=== PATIENT | female | born 1975 | race Caucasian/White ===

== ENCOUNTER 2019-01-01 16:44 | Emergency (ER) | payer BC, SELFPAY ==
[2019-01-01 16:49] VITALS: BP 121/90; PULSE 111; RESP 16; TEMP 37; O2SAT 100; BMI 25.0
[2019-01-01 17:23] LABS: Add Manual Diff / Slide Review NO; Basophils Absolute Auto 100 /uL (0-100); Eosinophils Absolute Auto 100 /uL (0-450); Eosinophils Percent Auto 1.6 % (2-4); Hematocrit 43.4 % (36-46); Hemoglobin 14.9 g/dL (12.0-16.0); Lymphocytes Absolute Auto 2100 /uL (1100-4500); Lymphocytes Percent Auto 27.3 % (25-40); Mean Corpuscular HGB Conc 34.2 % (30-36); Mean Corpuscular Hemoglobin 32.2 PG (26-34); Monocytes Absolute Auto 500 /uL (0-900); Monocytes Percent Auto 6.6 % (3-14); Neutrophils Absolute Auto 4900 /uL (1500-7000); Neutrophils Percent Auto 63.5 % (50-75); Platelet Count 215 X10^3/uL (150-400); Red Blood Cell Count 4.62 X10^6/uL (4.0-5.2); Red Cell Distribution Width 13.3 % (11.6-14.8); White Blood Cell Count 7.7 X10^3/uL (4.5-11.0)
[2019-01-01 17:30] LABS: Bacteria Urine Few (2-10); Culture Indicated Urine Cult Not Indicated; RBC Urine 1-5/HPF (0-5/HPF); Squamous Epithelial Cell Urine 1-5 /HPF (0-5/HPF); WBC Urine 1-5/HPF (0-5/HPF)
[2019-01-01 17:31] LABS: Acetaminophen < 10 ug/mL (10-30); Alanine Aminotransferase 22 IU/L (9-52); Albumin 4.8 g/dL (3.5-5.0); Albumin Globulin Ratio 1.7 (1.0-2.8); Alkaline Phosphatase 45 U/L (38-126); Aspartate Aminotransferase 33 IU/L (14-36); BUN Creatinine Ratio 18.6 (6-22); Bilirubin Total 0.3 mg/dL (0.2-1.3); Blood Urea Nitrogen 13 mg/dL (7-17); Calcium 9.2 mg/dL (8.4-10.2); Carbon Dioxide 27 mmol/L (22-32); Chloride 107 mmol/L (98-107); Estimated Glomerular Filt Rate > 60.0 mL/min (>60); Ethanol (ETOH) 209 mg/dL; Globulin 2.9 g/dL (1.7-4.1); Glucose 92 mg/dL (70-100); HEMOLYSIS < 15 (0-50); Potassium 3.7 mmol/L (3.4-5.1); Salicylate < 1.0 mg/dL (<20); Sodium 146 mmol/L (137-145); Total Protein 7.7 g/dL (6.3-8.2)
--- NOTE | 2019-01-01 17:52 | PC.NURSE ---
Patient called per patient request. Jarrod [phone] Reports that patient has been very depressed and angry recently. He reports patient has made comments about hating her mother and her life He states that a couple days ago she made a statement about wanting to jump off the bridge but that she couldn't do it. Patient states that normally she is the sweetest most loving person the way she has been acting recently is not her.
[2019-01-01 17:57] LABS: Urine Amphetamines Negative (Negative); Urine Barbiturates Negative (Negative); Urine Benzodiazepines Negative (Negative); Urine Cocaine Negative (Negative); Urine MDMA Negative (Negative); Urine Methadone Negative (Negative); Urine Methamphetamines Negative (Negative); Urine Morphine/Opi cutoff 2000 Negative (Negative); Urine Oxycodone Negative (Negative); Urine Phencyclidine Negative (Negative); Urine Tetrahydrocannabinol Positive (Negative); Urine Tricyclic Antidepressant Negative (Negative)
--- NOTE | 2019-01-01 18:10 | ED.PSYCH ---
HPI - Psych General Chief Complaint: Psychiatric Symptoms Stated Complaint: Suicidal Time Seen by Provider: 01/01/19 18:10 Source: patient and family Mode of arrival: other (Police) Limitations: other (Intoxication) History of Present Illness HPI Narrative: Patient is a 43-year-old female who is brought in by police. The police were called by the patient's after he received a text earlier today from his stating that she was ?sorry? he states that he then received a photo of the [place] from [place]. It was reported by the patient and the that she has been feeling depressed recently. Patient denies any specific reason. She has had depression in the past. Does not see a mental health provider. Denies any other medical problems. Does not take any medications for mental health issues. She has had a prior suicide attempt several years ago. Denies any prior admissions. The patient's stated that a couple days ago she made a comment about ?wanting to jump off a bridge ?. He states that she has made comments like this in the past but has never acted on anything. Patient does admit to drinking alcohol. Related Data Home Medications Medication Instructions Recorded Confirmed No Known Home Medications 01/01/19 01/01/19 Allergies Allergy/AdvReac Type Severity Reaction Status Date / Time No Known Drug Allergies Allergy Verified 01/01/19 16:58 Review of Systems Review of Systems Patient denies all symptoms Constitutional Denies headache(s) ENT Ears, Nose, Mouth, and Throat: Denies headache(s) Cardiovascular Denies chest pain and Denies dyspnea Respiratory Denies dyspnea Gastrointestinal Gastrointestinal: Denies abdominal pain Musculoskeletal Denies myalgias and Denies arthralgias Integumentary/Breasts Denies rash Neurologic Denies headache(s) Psychiatric Reports depression and Reports suicidal ideation Hematologic/Lymphatic Denies easy bleeding and Denies easy bruising [facility] Medical History Depression (Acute) Social History Smoking Status: Never smoker Social History Smoking Status: Never smoker Exam Initial Vital Signs Initial Vital Signs: Vital Signs Temperature 98.6 F 01/01/19 16:49 Pulse Rate 111 H 01/01/19 16:49 Respiratory Rate 16 05/21/19 16:49 Blood Pressure 121/90 01/01/19 16:49 Pulse Oximetry 100 01/01/19 16:49 Const General: well developed and other (Angry) Orientation: alert, awake and oriented x3 HENMT Head: normal to inspection and normocephalic Resp Effort & Inspection: normal respiratory effort Cardio Rate: tachycardic Skin Lesions: no lesions Rashes: no rashes Neuro General: alert and awake Speech: speech normal Extrem Other: No gross abnormalities moves all 4 extremities Psych Appearance: grossly normal and well kempt Speech and Movement: agitated and restless Mood: angry Affect: animated, anxious affect, indifferent (States that standing on the bridge ready to jump does not bother her) and irritable affect Attitude: belligerent Thought Process: illogical Thought Content: suicidality Judgment: poor Course Orders Ordered: ED Orders 01/01/19 23:55 Ethanol (ETOH) Stat 01/02/19 01:45 Ethanol (ETOH) Stat Discontinued Medications Acetaminophen (Tylenol) 650 mg PO NOW ONE Stop: 01/01/19 21:15 Last Admin: 01/01/19 21:20 Dose: 650 mg Lorazepam (Ativan) 0.5 mg IV NOW ONE Stop: 01/02/19 02:35 Last Admin: 01/02/19 02:40 Dose: Not Given Lorazepam (Ativan) 0.5 mg PO NOW ONE Stop: 01/02/19 02:37 Last Admin: 01/02/19 02:38 Dose: 0.5 mg Lorazepam (Ativan) 0.5 mg IV NOW ONE Stop: 01/02/19 03:25 Last Admin: 01/02/19 03:28 Dose: 0.5 mg Lorazepam (Ativan) 0.5 mg IV NOW ONE Stop: 01/02/19 04:26 Last Admin: 01/02/19 04:40 Dose: 0.5 mg Lorazepam (Ativan) 0.5 mg IV NOW ONE Stop: 01/02/19 06:16 Last Admin: 01/02/19 06:20 Dose: 0.5 mg Ondansetron HCl (Zofran Odt) 4 mg SL NOW ONE Stop: 01/02/19 00:19 Last Admin: 01/02/19 00:19 Dose: 4 mg Ondansetron HCl (Zofran Odt) 4 mg SL NOW ONE Stop: 01/02/19 01:47 Last Admin: 01/02/19 01:48 Dose: 4 mg Vital Signs - 8 hr 01/02/19 00:08 01/02/19 02:38 01/02/19 03:20 Temperature 98.5 F 97.2 F L Pulse Rate 102 H 115 H 110 H Respiratory Rate 16 18 20 Blood Pressure [Left Arm] 114/79 126/83 Pulse Oximetry 98 98 96 01/02/19 06:20 Temperature 97.7 F Pulse Rate 118 H Respiratory Rate 16 Blood Pressure [Left Arm] 120/76 Pulse Oximetry 99 MDM - Psych Lab Data Attestation: I reviewed the patient's lab results. Result diagrams: 01/01/19 17:13 01/01/19 17:13 Lab Results 01/01/19 01/01/19 01/01/19 Range/Units 17:13 17:13 17:13 WBC 7.7 (4.5-11.0) X10^3/uL RBC 4.62 (4.0-5.2) X10^6/uL Hgb 14.9 (12.0-16.0) g/dL Hct 43.4 (36-46) % MCV 94.0 (80-100) fL MCH 32.2 (26-34) PG MCHC 34.2 (30-36) % RDW 13.3 (11.6-14.8) % Plt Count 215 (150-400) X10^3/uL Neut % (Auto) 63.5 (50-75) % Lymph % (Auto) 27.3 (25-40) % [place] % (Auto) 6.6 (3-14) % Eos % (Auto) 1.6 L (2-4) % Baso % (Auto) 1.0 (0-2) % Neut # (Auto) 4900 (1537-4370) /uL Lymph # (Auto) 2100 (9692-1474) /uL [place] # (Auto) 500 (0-900) /uL Eos # (Auto) 100 (0-450) /uL Baso # (Auto) 100 (0-100) /uL Sodium 146 H (137-145) mmol/L Potassium 3.7 (3.4-5.1) mmol/L Chloride 107 (98-107) mmol/L Carbon Dioxide 27 (22-32) mmol/L BUN 13 (7-17) mg/dL Creatinine 0.70 (0.52-1.04) mg/dL Estimated GFR > 60.0 (>60) mL/min BUN/Creatinine Ratio 18.6 (6-22) Glucose 92 (70-100) mg/dL Calcium 9.2 (8.4-10.2) mg/dL Total Bilirubin 0.3 (0.2-1.3) mg/dL AST 33 (14-36) IU/L ALT 22 (9-52) IU/L Alkaline Phosphatase 45 (38-126) U/L Total Protein 7.7 (6.3-8.2) g/dL Albumin 4.8 (3.5-5.0) g/dL Globulin 2.9 (1.7-4.1) g/dL Albumin/Globulin Ratio 1.7 (1.0-2.8) TSH 1.48 (0.47-4.68) uIU/mL Urine RBC (0-5/HPF) Urine WBC (0-5/HPF) Ur Squamous Epith Cells (0-5/HPF) Urine Bacteria (None) Ur Culture Indicated? Salicylates < 1.0 (<20) mg/dL Urine Opiates Screen (Negative) Ur Oxycodone Screen (Negative) Urine Methadone Screen (Negative) Acetaminophen < 10 L (10-30) ug/mL Ur Barbiturates Screen (Negative) U Tricyclic Antidepress (Negative) Ur Phencyclidine Scrn (Negative) Ur Amphetamines Screen (Negative) U Methamphetamines Scrn (Negative) Ur MDMA Scrn (Ecstasy) (Negative) U Benzodiazepines Scrn (Negative) Urine Cocaine Screen (Negative) U Marijuana (THC) Screen (Negative) Ethyl Alcohol 209 mg/dL 01/01/19 01/01/19 01/01/19 Range/Units 17:15 17:15 21:05 WBC (4.5-11.0) X10^3/uL RBC (4.0-5.2) X10^6/uL Hgb (12.0-16.0) g/dL Hct (36-46) % MCV (80-100) fL MCH (26-34) PG MCHC (30-36) % RDW (11.6-14.8) % Plt Count (150-400) X10^3/uL Neut % (Auto) (50-75) % Lymph % (Auto) (25-40) % [place] % (Auto) (3-14) % Eos % (Auto) (2-4) % Baso % (Auto) (0-2) % Neut # (Auto) (1735-2837) /uL Lymph # (Auto) (0738-9970) /uL [place] # (Auto) (0-900) /uL Eos # (Auto) (0-450) /uL Baso # (Auto) (0-100) /uL Sodium (137-145) mmol/L Potassium (3.4-5.1) mmol/L Chloride (98-107) mmol/L Carbon Dioxide (22-32) mmol/L BUN (7-17) mg/dL Creatinine (0.52-1.04) mg/dL Estimated GFR (>60) mL/min BUN/Creatinine Ratio (6-22) Glucose (70-100) mg/dL Calcium (8.4-10.2) mg/dL Total Bilirubin (0.2-1.3) mg/dL AST (14-36) IU/L ALT (9-52) IU/L Alkaline Phosphatase (38-126) U/L Total Protein (6.3-8.2) g/dL Albumin (3.5-5.0) g/dL Globulin (1.7-4.1) g/dL Albumin/Globulin Ratio (1.0-2.8) TSH (0.47-4.68) uIU/mL Urine RBC 1-5/hpf (0-5/HPF) Urine WBC 1-5/hpf (0-5/HPF) Ur Squamous Epith Cells 1-5 /hpf (0-5/HPF) Urine Bacteria Few (2-10) H (None) Ur Culture Indicated? Cult not indicated Salicylates (<20) mg/dL Urine Opiates Screen Negative (Negative) Ur Oxycodone Screen Negative (Negative) Urine Methadone Screen Negative (Negative) Acetaminophen (10-30) ug/mL Ur Barbiturates Screen Negative (Negative) U Tricyclic Antidepress Negative (Negative) Ur Phencyclidine Scrn Negative (Negative) Ur Amphetamines Screen Negative (Negative) U Methamphetamines Scrn Negative (Negative) Ur MDMA Scrn (Ecstasy) Negative (Negative) U Benzodiazepines Scrn Negative (Negative) Urine Cocaine Screen Negative (Negative) U Marijuana (THC) Screen Positive H (Negative) Ethyl Alcohol 156 mg/dL 01/02/19 01/02/19 Range/Units 00:05 01:45 WBC (4.5-11.0) X10^3/uL RBC (4.0-5.2) X10^6/uL Hgb (12.0-16.0) g/dL Hct (36-46) % MCV (80-100) fL MCH (26-34) PG MCHC (30-36) % RDW (11.6-14.8) % Plt Count (150-400) X10^3/uL Neut % (Auto) (50-75) % Lymph % (Auto) (25-40) % [place] % (Auto) (3-14) % Eos % (Auto) (2-4) % Baso % (Auto) (0-2) % Neut # (Auto) (9148-4473) /uL Lymph # (Auto) (4857-3368) /uL [place] # (Auto) (0-900) /uL Eos # (Auto) (0-450) /uL Baso # (Auto) (0-100) /uL Sodium (137-145) mmol/L Potassium (3.4-5.1) mmol/L Chloride (98-107) mmol/L Carbon Dioxide (22-32) mmol/L BUN (7-17) mg/dL Creatinine (0.52-1.04) mg/dL Estimated GFR (>60) mL/min BUN/Creatinine Ratio (6-22) Glucose (70-100) mg/dL Calcium (8.4-10.2) mg/dL Total Bilirubin (0.2-1.3) mg/dL AST (14-36) IU/L ALT (9-52) IU/L Alkaline Phosphatase (38-126) U/L Total Protein (6.3-8.2) g/dL Albumin (3.5-5.0) g/dL Globulin (1.7-4.1) g/dL Albumin/Globulin Ratio (1.0-2.8) TSH (0.47-4.68) uIU/mL Urine RBC (0-5/HPF) Urine WBC (0-5/HPF) Ur Squamous Epith Cells (0-5/HPF) Urine Bacteria (None) Ur Culture Indicated? Salicylates (<20) mg/dL Urine Opiates Screen (Negative) Ur Oxycodone Screen (Negative) Urine Methadone Screen (Negative) Acetaminophen (10-30) ug/mL Ur Barbiturates Screen (Negative) U Tricyclic Antidepress (Negative) Ur Phencyclidine Scrn (Negative) Ur Amphetamines Screen (Negative) U Methamphetamines Scrn (Negative) Ur MDMA Scrn (Ecstasy) (Negative) U Benzodiazepines Scrn (Negative) Urine Cocaine Screen (Negative) U Marijuana (THC) Screen (Negative) Ethyl Alcohol 100 66 mg/dL Point of Care Testing Glucose POC 79 Urine Dip Bedside Urine Glucose Negative Bedside Urine Bilirubin - Negative Bedside Urine Ketone - Negative Urine Specific [place] 1.020 Bedside Urine Occult Blood + Bedside Urine pH 5.5 Bedside Urine Protein - Negative Bedside Urine Urobilinogen - Negative Bedside Urine Nitrite - Negative Bedside Urine Leukocytes - Negative Esterase MDM Narrative Medical decision making narrative: Upon arrival patient was intoxicated and in my opinion does not have the capacity to make decisions. 1143: Patient has been much more calm. Did tolerate oral intake. Family still at bedside. Awaiting repeat alcohol level. I still feel that the patient is a danger to herself and does not have the capacity to make decisions so will reorder the restraints 0203: Patient alcohol level now below legal limit. She has been calm. Has had 2 episodes of vomiting which have been resolved with Zofran. Patient is now medically cleared. DCR contacted. Patient is medically cleared. Care turned over today provider change of shift for disposition. Discharge Plan Departure Patient Disposition: [facility] Clinical Impression: Suicidal ideation Prescriptions: No Action No Known Home Medications RF: 0
[2019-01-01 18:15] LABS: Thyroid Stimulating Hormone 1.48 uIU/mL (0.47-4.68)
--- NOTE | 2019-01-01 18:37 | PC.NURSE ---
Patient keeps repeating that she feels like no one cares about her and that she is wasting everyone's time and that the doctor doesn't give a crap about her and that the doctor will just come in the room and tell her that she is a piece of shit is trying to support and console patient but the patient is not receptive Patient's daughter is in room and patient said she shouldn't be here, daughter left room in tears and RN spoke with her and consoled her. Daughter has now returned to room Patient's mood has escalated since 's arrival and patient continues to state that she has been here a long time and that the doctor hasn't been in to see her....RN and myself have tried to update her that lab work still pending and that the doctor will be in to see her when results are final. Patient keeps stating that she has been in ER over 3 hours and yet at the time she said that it had only been a little over an hour. Patient keeps telling her daughter that she is sorry that her dad brought her
--- NOTE | 2019-01-01 19:06 | PC.NURSE ---
Patient spouse arrived at bedside. Patient escalating. Patient upset about not seeing a doctor yet. Reminded patient of our in depth discussion in triage about the process. Asked patient to remove clothing and place on paper scrubs per hospital policy. Patient agitated nobody fucking told me that why am I being punished for asking about my care Reminded patient of the process. Patient undressed and placed on paper scrubs. remains at bedside. Ongoing yelling at her about being at the hospital Thanks a lot Leonides it is your fucking fault I am here. This is the last time I ever tell anyone anything
--- NOTE | 2019-01-01 19:40 | PC.NURSE ---
pt is laying down on bed having a conversation with his and daughter in the room.
--- NOTE | 2019-01-01 19:46 | PC.NURSE ---
Pt laying on bed, , nurse and dr padron in room talking.
--- NOTE | 2019-01-01 20:00 | PC.NURSE ---
pt laying on mattress, family has left and door is open to hallway and lights are on in room.
--- NOTE | 2019-01-01 20:15 | PC.NURSE ---
Door is open to hallway and lights are on in room. Pt is resting on bed with blankets over her.
--- NOTE | 2019-01-01 20:30 | PC.NURSE ---
pt relaxing on bed, door is open to hallway.
--- NOTE | 2019-01-01 20:48 | PC.NURSE ---
pt got up and used bathroom and is now back in bed with blankets over her. Bathroom door is now re-locked and door is open to hallway and lights are off so pt can rest.
--- NOTE | 2019-01-01 20:53 | PC.NURSE ---
pt raising her voice i can't miss work, i'll lose my job pt directing this to spouse. i asked spouse for space, he agreed, escorted he and his daughter out to waiting area. at 1999, just updated him that she doesn't want visitors at this time.
--- NOTE | 2019-01-01 21:01 | PC.NURSE ---
Pt is laying on bed, lab in room to re-draw blood.
[2019-01-01 21:07] VITALS: BP 120/85; PULSE 99; RESP 15; O2SAT 100
[2019-01-01] MEDS: ACETAMINOPHEN 325 MG TABLET 650 MG PO (21:20)
[2019-01-01 21:23] LABS: Ethanol (ETOH) 156 mg/dL
--- NOTE | 2019-01-01 21:27 | PC.NURSE ---
Nurse giving pt medication with water, pt sitting up in bed. Door is open to hallway.
--- NOTE | 2019-01-01 21:31 | PC.NURSE ---
Pt is laying down, door is open to hallway and lights are off in room.
--- NOTE | 2019-01-01 21:48 | PC.NURSE ---
pt's is in room visiting
--- NOTE | 2019-01-01 22:15 | PC.NURSE ---
pt is laying on bed relaxin with blankets over her. Door is open to hallway and lights are off in room.
--- NOTE | 2019-01-01 22:33 | PC.NURSE ---
pt is resting on bed
--- NOTE | 2019-01-01 22:41 | PC.NURSE ---
daughter brought patient food to eat. patient sitting on stretcher calm and eating. provider aware and ok with patient to eat. no new orders at this time.
--- NOTE | 2019-01-01 22:45 | PC.NURSE ---
is back in room visiting, pt is laying on bed and door is open to hallway and rm lights are off.
--- NOTE | 2019-01-01 23:02 | PC.NURSE ---
pt's is in room visiting, door is open to hallway and lights are off in room.
--- NOTE | 2019-01-01 23:15 | PC.NURSE ---
MARY Dominguez called in to sit 1:1 with patient from 2300 until otherwise discontinued. RN cannot chart under ED charting. provider, charge nurse and data warehouse architect notified and aware. see paper charting for 15 minute checks.
[2019-01-02 00:08] VITALS: BP 114/79; PULSE 102; RESP 16; TEMP 36.9; O2SAT 98
[2019-01-02] MEDS: ONDANSETRON 4 MG ODT SL ×2 (00:19→01:48)
--- NOTE | 2019-01-02 00:20 | PC.NURSE ---
patient feeling nauseous. patient given an emesis bag. provider notified. provider ordered 4mg zofran odt VORB. no new orders at this time.
[2019-01-02 00:27] LABS: Ethanol (ETOH) 100 mg/dL
--- NOTE | 2019-01-02 01:49 | PC.NURSE ---
patient nauseous and dry heaving. provider notified and ordered 4mg zofran odt.
[2019-01-02 02:01] LABS: Ethanol (ETOH) 66 mg/dL
[2019-01-02 02:38] VITALS: BP 126/83; PULSE 115; RESP 18; TEMP 36.2; O2SAT 98
[2019-01-02] MEDS: LORazepam 0.5 MG TABLET PO ×2 (02:38→09:29)
--- NOTE | 2019-01-02 02:43 | PC.NURSE ---
patient nauseous again and vomited about 10mls with dry heaving. provider notified. no new orders at this time.
[2019-01-02 03:20] VITALS: PULSE 110; RESP 20; O2SAT 96
[2019-01-02] MEDS: LORazepam 2 MG/ML INJ 0.5 MG IV ×3 (03:28→06:20)
--- NOTE | 2019-01-02 03:45 | PC.NURSE ---
patient continues to be nauseous and feeling anxious. provider notified. provider ordered for an IV and 0.5mg IV ativan.
--- NOTE | 2019-01-02 03:53 | PC.NURSE ---
[facility] turns over shift at 0500. unknown of what time [facility] will arrive but sometime after 0500. provider aware.
--- NOTE | 2019-01-02 04:20 | PC.NURSE ---
patient complains that she still feels anxious. provider notified and ordered 0.5mg of ativan via IV. patient states nausea is better. no new orders at this time.
[2019-01-02 06:20] VITALS: BP 120/76; PULSE 118; RESP 16; TEMP 36.5; O2SAT 99
--- NOTE | 2019-01-02 07:21 | PC.NURSE ---
pt resting, spouse at bs, denies suicidal at this time, requesting ativan for anxiety. denies pain at this time. states, has been drinking gingerale. informed plan of care, DCR arriving at 8-9am. dr ulrich made aware of pts request.
--- NOTE | 2019-01-02 07:31 | PC.NURSE ---
plan of care, breakfast, DCR eval this morning, observation.
--- NOTE | 2019-01-02 07:48 | PC.NURSE ---
gunjan baltazar at bs for close monitoring. spouse at bs. pt calm at this time.
--- NOTE | 2019-01-02 08:16 | PC.NURSE ---
SHANNAN peace at bs.
--- NOTE | 2019-01-02 08:52 | PC.NURSE ---
Pt received breakfast, in room.
--- NOTE | 2019-01-02 08:53 | PC.NURSE ---
DCR arrived at 0815, is in with patient.
--- NOTE | 2019-01-02 08:54 | PC.NURSE ---
DCR is still with patient, in room also.
--- NOTE | 2019-01-02 08:55 | PC.NURSE ---
DCR in room, also in room.
--- NOTE | 2019-01-02 09:10 | PC.NURSE ---
in room. Close observation.
--- NOTE | 2019-01-02 09:19 | PC.NURSE ---
in room, close observation.
[2019-01-02] MEDS: ACETAMINOPHEN 325 MG TABLET 975 MG PO (09:29)
[2019-01-02 09:50] VITALS: BP 119/82; PULSE 105; RESP 17; TEMP 36.5; O2SAT 98
== END 2019-01-02 10:09 | disposition home or self-care (01) ==
PROVIDERS: Emergency Medicine; Emergency Provider Emergency Medicine
DX: R45.851 Suicidal ideations (principal)
CPT/HCPCS: 36415; 80053; 80305; 80320; 80329; 81003; 81015; 82962; 84443; 85025; 96374; 96376; 99285; G0480; J2060